=== PATIENT | male | born 1945 | race Caucasian/White ===

== ENCOUNTER 2020-09-05 12:36 | Emergency (ER) | payer OTHER, SELFPAY ==
[2020-09-05 13:14] VITALS: BP 140/98; PULSE 70; RESP 16; TEMP 36.8; O2SAT 98; BMI 26.1
--- NOTE | 2020-09-05 13:17 | HMH.EDUTC ---
[facility] [place] Clinical Impression: Viral syndrome, Exposure to COVID-19 virus Disposition: Home, Self-Care Condition on Discharge: Good Instructions: Preventing the Spread of Coronavirus Discharge Instructions Additional Instructions: Drink plenty of fluids. Take tylenol for pain or fever. Return if you begin to have difficulty breathing. Follow up with your regular doctor. GO TO THE ER FOR ANY WORSENING SYMPTOMS Referrals: PCP,No [Primary Care Provider] - Time of Disposition: 13:21 Medical Decision Making - Medical Records Medical records reviewed: No: I reviewed the patient's medical records. - Jairo Inquiry Pt receiving controlled substance: No Vital Signs: 09/05/20 13:14 09/05/20 13:25 Temperature 98.3 F 98.3 F Temperature Source Oral Pulse Rate 70 Pulse Rate [Right Brachial] 70 Respiratory Rate 16 16 Blood Pressure 140/98 H Blood Pressure [Right Arm] 140/98 H Blood Pressure Mean [Right Arm] 112 Blood Pressure Source [Right Arm] Automatic Cuff Blood Pressure Position [Right Arm] Sitting 02 Sat by Pulse Oximetry 98 Orders (Tests/Meds): ORDERS Category Date Time Status Covid-19 Nasal PCR Sendout Michael Routine Lab 09/05/20 13:00 [place] [facility] [place] - General Stated complaint: covid test Time Seen by Provider: 09/05/20 13:19 - History of Present Illness Provider Complaint: He states that for the past 2 days he has just not felt good. He denies any fever, chills, cough. He has had a head ache at times. He denies any known exposure to covid, but he came in to be checked. - Related Data Allergies Allergy/AdvReac Type Severity Reaction Status Date / Time No Known Allergies Allergy Verified 09/05/20 13:19 [facility] History - Hepatitis A Screen Attestation statement:: This patient has been screened for Hepatitis A risk factors. I have reviewed the patient's past medical history: Yes ROS Obtained: Yes All systems reviewed & no additional complaints - Constitutional Constitutional: Denies chills, Denies fever(s) - Eyes Eyes: Reports system reviewed and no additional complaints, except as docu - ENT Ears, Nose, Mouth, and Throat: Reports system reviewed and no additional complaints, except as docu - Cardiovascular Cardiovascular: Reports system reviewed and no additional complaints, except as docu - Respiratory Respiratory: Yes system reviewed and no additional complaints, except as docu - Gastrointestinal Gastrointestingal: Reports: system reviewed and no additional complaints, except as docu Physical Exam - General General appearance: alert, in no apparent distress - Head Head exam: atraumatic, normocephalic, normal inspection - Eye Eye exam: Present: normal appearance, PERRL, EOMI - ENT ENT exam: Present: normal exam, normal oropharynx, mucous membranes moist, TM's normal bilaterally, normal external ear exam - Neck Neck exam: Present: normal inspection, full ROM, trachea midline. Absent: meningismus, lymphadenopathy - Chest Chest inspection: Present: normal inspection, symmetric chest wall rise. Absent: tenderness - Respiratory Respiratory exam: Present: normal lung sounds bilaterally. Absent: respiratory distress - Cardiovascular Cardiovascular exam: Present: regular rate, normal rhythm. Absent: JVD - Abdominal Exam Abdominal exam: Present: soft, normal bowel sounds. Absent: distention, tenderness, guarding - Extremities Exam Extremities exam: Present: normal inspection, full ROM, normal capillary refill. Absent: calf tenderness - Back Exam Back exam: Present: normal inspection. Absent: tenderness - Neurological Exam Neurological exam: Present: alert, oriented X3 - Psychiatric Psychiatric exam: Present: normal affect, normal mood - Skin Skin exam: Present: warm, dry, intact, normal color - Lymphatic Lymphatic Findings: no adenopathy
[2020-09-05 13:25] VITALS: BP 140/98; PULSE 70; RESP 16; TEMP 36.8; O2SAT 98
[2020-09-06 13:07] LABS: Covid-19 Nasal PCR Sendout Lex Positive
--- NOTE | 2020-09-06 13:37 | PC.NURSE ---
Attempted to call patient to notify of covid results. No answer, message left.
== END 2020-09-05 13:29 | disposition home or self-care (01) ==
PROVIDERS: Emergency Provider Nurse Practitioner Family
DX: U07.1 COVID-19 (principal)
CPT/HCPCS: 99201; U0004

== ENCOUNTER 2022-01-13 23:39 | Emergency (ER) | payer SELFPAY ==
[2022-01-13 23:32] VITALS: BP 173/100; PULSE 90; RESP 18; TEMP 36.8; O2SAT 99; BMI 26.1
[2022-01-13 23:40] VITALS: BMI 26.1
--- NOTE | 2022-01-13 23:40 | ECG_ITS ---
APPROVED REPORT Exam: Resting ECG HR:86 bpm ECG Measurements Heart Rate 86 AXES MD 163 P 57 QRSd 124 QRS -64 QT 354 T 78 QTc 397 Conclusion SINUS RHYTHM LEFT ANTERIOR FASCICULAR BLOCK [QRS AXIS <= -45, QR IN I, RS IN II] LEFT VENTRICULAR HYPERTROPHY AND ST-T CHANGE [VOLTAGE CRITERIA PLUS ST/T ABNORMALITY] POSSIBLE SEPTAL MYOCARDIAL INFARCTION , PROBABLY OLD [30 ms Q WAVE IN V1/V2] POSSIBLE LATERAL MYOCARDIAL INFARCTION , OF INDETERMINATE AGE [30 ms Q WAVE IN I/aVL/V5/V6] ABNORMAL ECG UNCONFIRMED REPORT Electronically signed by : Antonio Bernal MD 01/14/2022 15:09:33
--- NOTE | 2022-01-13 23:40 | XR_ITS ---
PROCEDURE INFORMATION: Exam: XR Chest Exam date and time: 01/13/2022 11:51 PM Age: 76 years old Clinical indication: Shortness of breath and other: General weakness; Additional info: SOA general weakness TECHNIQUE: Imaging protocol: XR of the chest. Views: 2 views. COMPARISON: No relevant prior studies available. FINDINGS: Lungs: Unremarkable. No consolidation. Pleural spaces: Unremarkable. No pleural effusion. No pneumothorax. Heart/Mediastinum: . Large hiatal hernia. No cardiomegaly. Bones/joints: Unremarkable. IMPRESSION: No acute findings.
[2022-01-13 23:48] VITALS: BP 173/100; PULSE 85; RESP 13; O2SAT 95
--- NOTE | 2022-01-13 23:54 | PC.NURSE ---
Pt gone to RAD
[2022-01-13 23:56] LABS: Basophils # 0.1 K/mm3 (0-0.2); Basophils % 0.8 % (0.1-2.0); Eosinophils # 0.1 K/mm3 (0.0-0.4); Eosinophils % 0.8 % (0.1-12.0); Hematocrit 44.1 % (42.0-52.0); Lymphocytes # 0.8 K/mm3 (0.7-4.5); Mean Corpuscular Hemoglobin 32.2 pg (27.0-31.2); Monocytes # 1.2 K/mm3 (0.1-1.0); Monocytes % 8.9 % (1.7-9.3); Neutrophils # 11.5 K/mm3 (1.8-7.8); Neutrophils % 83.5 % (37.0-80.0); Platelet Count 242 K/mm3 (142-424); Red Blood Count 4.64 M/mm3 (4.60-6.20); Red Cell Distribution Width 14.2 % (11.5-17.5); White Blood Count 13.8 K/mm3 (4.8-10.8)
--- NOTE | 2022-01-14 00:02 | PC.NURSE ---
Pt back from RAD
[2022-01-14 00:04] LABS: Microscopic, Urine URINE MICROSCOPIC (MICROSCOPIC)
[2022-01-14 00:05] LABS: Alanine Aminotransferase 38 U/L (12-78); Albumin Level 3.8 g/dl (3.5-5.0); Albumin/Globulin Ratio 1.3 (1.1-1.8); Alkaline Phosphatase 100 U/L (38-126); Aspartate Amino Transferase 45 U/L (17-59); Bilirubin,Total 1.2 mg/dl (0.2-1.3); Blood Urea Nitrogen 61 mg/dl (9-20); Calcium 8.4 mg/dl (8.4-10.2); Carbon Dioxide 23 mmol/L (22.0-30.0); Chloride 98 mmol/L (98-107); Creatinine Clearance Estimated 30 mL/min (50-200); Estimated Glomerular Filt Rate 20 ml/min (>60); GFR (African American) 25 ML/MIN (>60); Glucose 125 mg/dl (74-100); Lactic Acid 0.8 mmol/L (0.7-2.1); Sodium 130 mmol/L (136-145); Total Protein,Serum 6.8 g/dl (6.3-8.2)
[2022-01-14 00:08] LABS: C-Reactive Protein 226.2 mg/L (0-4)
[2022-01-14 00:09] LABS: Appearance,Urine CLEAR (Clear); Bilirubin,Urine Negative (Negative); Blood, Urine 1+ (Negative); Color,Urine YELLOW (Yellow); Glucose,Urine (UA) Negative (Negative); Ketones,Urine Negative (Negative); Leukocyte Esterase,Urine Negative (Negative); Nitrate,Urine Negative (Negative); Protein,Urine Negative (Negative); Specific Gravity, Urine 1.015 (1.005-1.030); Urobilinogen,Urine 0.2 EU/dl (0.2)
[2022-01-14 00:12] LABS: Squamous Epithelial Cell,Urine Occasional #/hpf (0-5); WBC,Urine Occasional #/hpf (0-3)
[2022-01-14 00:20] LABS: Erythrocyte Sedimentation Rate 40 mm/hr (0-20)
[2022-01-14 00:22] LABS: Procalcitonin 0.689 ng/mL (0.0-2.0)
--- NOTE | 2022-01-14 00:24 | HMH.EDSOB ---
ED Disposition Clinical Impression: SUMA (acute kidney injury), Elevated BP without diagnosis of hypertension Disposition: Xfer Short-Term Hosp Condition on Discharge: Fair Referrals: Provider,Referral, [Primary Care Provider] - - Critical Care Critical Care Time: No Attestation: On 01/13/22, the high probability of a clinically significant, sudden or life threatening deterioration of the following system(s) required my full and direct attention, intervention and personal management. The time I documented below is in addition to time spent performing reported procedures but includes the following listed in this critical care notation. Medical Decision Making - Medical Records Medical records reviewed: Yes: I reviewed the patient's medical records. - Jairo Inquiry Pt receiving controlled substance: No Vital Signs: 01/13/22 23:32 01/13/22 23:48 01/14/22 00:46 Temperature 98.2 F Temperature Source Oral Pulse Rate 85 86 Pulse Rate [Right] 90 Respiratory Rate 18 13 25 H Blood Pressure 173/100 H 148/76 H Blood Pressure [Right Arm] 173/100 H Blood Pressure Mean [Right Arm] 124 02 Sat by Pulse Oximetry 99 95 92 L Oxygen Delivery Method Room Air Room Air 01/14/22 01:00 01/14/22 01:15 01/14/22 05:07 Temperature Temperature Source Pulse Rate 87 91 H 69 Pulse Rate [Right] Respiratory Rate 26 H 19 Blood Pressure 154/75 H 166/96 H 178/101 H Blood Pressure [Right Arm] Blood Pressure Mean [Right Arm] 02 Sat by Pulse Oximetry 91 L 95 94 L Oxygen Delivery Method Room Air Room Air Room Air - Lab Data Lab results reviewed: Yes: I reviewed the patient's lab results. Lab Results 01/13/22 23:44: WBC 13.8 H, RBC 4.64, Hgb 15.0, Hct 44.1, MCV 95.0 H, MCH 32.2 H, MCHC 34.0, RDW 14.2, Plt Count 242, MPV 9.0, Neut % (Auto) 83.5 H, Lymph % (Auto) 6.0 L, Todd % (Auto) 8.9, Eos % (Auto) 0.8, Baso % (Auto) 0.8, Neut # (Auto) 11.5 H, Lymph # (Auto) 0.8, Todd # (Auto) 1.2 H, Eos # (Auto) 0.1, Baso # (Auto) 0.1, ESR 40 H 01/13/22 23:44: Sodium 130 L, Potassium 4.0, Chloride 98, Carbon Dioxide 23, Anion Gap 13.0, BUN 61 H, Creatinine 3.00 H, Estimated Creat Clear 30, Estimated GFR 20 L, Est GFR ( Amer) 25 L, Glucose 125 H, Calcium 8.4, Total Bilirubin 1.2, AST 45, ALT 38, Alkaline Phosphatase 100, C-Reactive Protein 226.2 H, Total Protein 6.8, Albumin 3.8, Globulin 3.0, Albumin/Globulin Ratio 1.3, Procalcitonin 0.689 01/13/22 23:44: Lactate 0.8 01/13/22 23:44: NT-Pro-B Natriuret Pep 244, TSH 1.43 01/13/22 23:44: Free T4 1.31 01/13/22 23:44: Troponin I < 0.01 01/13/22 23:44: Plasma/Serum Alcohol < 10 01/13/22 23:59: Urine Color Yellow, Urine Appearance Clear, Urine pH 5.0, Ur Specific Newell 1.015, Urine Protein Negative, Urine Glucose (UA) Negative, Urine Ketones Negative, Urine Blood 1+, Urine Nitrate Negative, Urine Bilirubin Negative, Urine Urobilinogen 0.2, Ur Leukocyte Esterase Negative, Urine RBC 5-10, Urine WBC Occasional, Ur Squamous Epith Cells Occasional 01/14/22 00:44: SARS-CoV-2 (PCR) Not detected, Influenza A Untype (PCR) Not detected, Influenza Type B (PCR) Not detected 01/14/22 03:11: Troponin I < 0.01 Result diagrams: 01/13/22 23:44 01/13/22 23:44 Orders (Tests/Meds): ED MEDICATIONS Generic Name Dose Route Start Last Admin Trade Name Freq PRN Reason Stop Dose Admin Lactated Ringer's 1,000 mls @ 999 mls/hr 01/14/22 00:30 01/14/22 00:31 Lactated Ringer's 1000 Ml Bag IV 01/14/22 01:30 999 mls/hr .Q1H1M MAXX Administration Lactated Ringer's 1,000 mls @ 999 mls/hr 01/14/22 06:30 01/14/22 06:19 Lactated Ringer's 1000 Ml Bag IV 01/14/22 07:30 999 mls/hr .Q1H1M MAXX Administration ORDERS Category Date Time Status Blood Culture Stat Micro 01/13/22 23:44 Received - Radiology Data #1 Image(s): Chest Image Reviewed: Yes I have reviewed radiologist's interpretation Preliminary Findings: Normal/NAD - ECG Data Tracing #1 Normal Sinus
[2022-01-14 00:46] VITALS: BP 148/76; PULSE 86; RESP 25; O2SAT 92
[2022-01-14 00:49] LABS: Coronavirus 19, PCR Not Detected (NotDetected); Influenza A, PCR Not Detected (NotDetected); Influenza B, PCR Not Detected (NotDetected)
[2022-01-14 01:00] VITALS: BP 154/75; PULSE 87; RESP 26; O2SAT 91
[2022-01-14 01:15] VITALS: BP 166/96; PULSE 91; RESP 19; O2SAT 95
--- NOTE | 2022-01-14 01:43 | PC.NURSE ---
Pt records received from [facility]
[2022-01-14 01:48] LABS: NT Pro Brain Natriuretic Pep. 244 pg/mL (0-450)
--- NOTE | 2022-01-14 01:54 | PC.NURSE ---
Pt making excessive noise. Went to recheck pt condition. Pt had removed his IV and all vital monitors. Pt advised that he was getting tired of waiting and just wanted to go to sleep.
[2022-01-14 01:56] LABS: Free T4 (Free Thyroxine) 1.31 ng/dl (0.78-2.19)
--- NOTE | 2022-01-14 01:58 | PC.NURSE ---
Pt given warm blanket and light was turned off.
[2022-01-14 02:05] LABS: Troponin I < 0.01 ng/ml (0.00-0.034)
[2022-01-14 02:10] LABS: Thyroid Stimulating Hormone 1.43 uIU/mL (0.465-4.68)
--- NOTE | 2022-01-14 03:14 | PC.NURSE ---
Pt given pillow and made comfortable
[2022-01-14 03:25] LABS: Ethyl Alcohol < 10 mg/dl (0-10)
[2022-01-14 03:42] LABS: Troponin I < 0.01 ng/ml (0.00-0.034)
[2022-01-14 05:07] VITALS: BP 178/101; PULSE 69; O2SAT 94
--- NOTE | 2022-01-14 05:11 | PC.NURSE ---
Pt sleeping well. No new needs.
--- NOTE | 2022-01-14 05:56 | PC.NURSE ---
ER speaking with dr ventura from [facility]
--- NOTE | 2022-01-14 06:22 | PC.NURSE ---
pt accepted @ [facility]
--- NOTE | 2022-01-14 08:00 | PC.NURSE ---
Called [facility] for transport to [place]
--- NOTE | 2022-01-14 08:02 | PC.NURSE ---
REPORT CALLED TO FLOOR
--- NOTE | 2022-01-14 08:05 | PC.NURSE ---
Requested 2 milks from dietary
--- NOTE | 2022-01-14 08:24 | PC.NURSE ---
Notified [facility] that pt no longer requires transport to [facility] d/t signing out AMA
--- NOTE | 2022-01-14 08:30 | PC.NURSE ---
PT STATES HE IS NOT GOING TO REFUSED ADMISSION. STATES HE IS LEAVING AND GOING HOME, HE HAS ANIMALS TO FEED. INFORMED DR SALAS OF PT'S REFUSAL. PT SIGNED AMA.
[2022-01-14 08:44] VITALS: BP 166/74; PULSE 87; RESP 16; TEMP 36.6; O2SAT 96
== END 2022-01-14 08:48 | disposition left against medical advice (07) ==
PROVIDERS: Emergency Provider Emergency Medicine
DX: R03.1 Nonspecific low blood-pressure reading (principal); R06.02 Shortness of breath; R53.1 Weakness; Z20.822 Contact with and (suspected) exposure to COVID-19
CPT/HCPCS: 71046; 80053; 81001; 83605; 83880; 84145; 84439; 84443; 84484; 85025; 85651; 86140; 87040; 87077; 87186; 93005; 99285; C9803; U0003; U0005